=== PATIENT | male | born 1935 | race Caucasian/White ===

== ENCOUNTER 2017-05-03 22:15 | Emergency (ER) | payer OTHER | END 2017-05-04 03:20 | disposition home or self-care (01) | LOC: CED 22:15 | DX: M79.661 Pain in right lower leg (principal); E11.9 Type 2 diabetes mellitus without complications; I10 Essential (primary) hypertension | CPT/HCPCS: 99283 ==

== ENCOUNTER → 2017-05-04 | Outpatient (CLI) | payer OTHER ==
--- NOTE | ~2017-05-04 | US85 ---
[facility] A Service of [facility] & [facility] RADIOLOGY TEXT RESULTS PATIENT: DRAKE BOYD LOCATION: CNIV : 36 UNIT #: [id number] AGE: [address]: Eliot Contreras MD SEX: M ORDER DR: [id number] [facility] [address] [place], [place] [address] [id number] O MR#: [id number] Acc #: [id number] NAME: DRAKE BOYD : 1935 SEX: M STUDY DATE/TIME: 05/04/2017 8:30 UNIT: CNIV ROOM: STUDY DESCRIPTION: [facility] Attending Physician: Eliot Contreras M.D. Referring Physician: Eliot Contreras M.D. Ordering Physician: Eliot Contreras M.D. Primary Care Physician: Primary Care Physician No MEDICAL IMAGING REPORT This report is preliminary unless electronic signature is present EXAM Bilateral lower extremity venous duplex, 05/04/2017 HISTORY Right groin pain for 2 weeks, right thigh pain for 2 weeks. FINDINGS Hartmann-scale images of the right lower extremity were obtained as well as Doppler waveform spectral analysis and color flow Doppler imaging. There is normal blood flow and compressibility in the right common femoral vein, deep femoral vein, superficial femoral vein and popliteal vein. Normal blood flow and compressibility is seen in the right calf veins. Right lower extremity edema is noted. There is a 4.0 cm hypoechoic collection in the distal right thigh at the site of bruising probably representing a hematoma. Clinical correlation is recommended. IMPRESSION 1. No evidence of deep vein thrombosis in the right lower extremity. 2. 4.0 cm hypoechoic collection deep to the subcutaneous tissues in the distal right thigh at the area of bruising. This probably represents hematoma. Clinical correlation is recommended. Dictated by... Jonh Sepulveda M.D. THIS IS AN ELECTRONICALLY VERIFIED REPORT Jonh Sepulveda M.D. at 05/04/2017 5:04 PM TABBY/esther TD: 05/04/2017 10:51 JOB #: [id number] MEDICAL IMAGING REPORT [facility] [email or web address] A Service of [facility] & [facility] RADIOLOGY TEXT RESULTS PATIENT: DRAKE BOYD LOCATION: CNIV : 36 UNIT #: [id number] AGE: [address]: Eliot Contreras MD SEX: M ORDER DR: Page 1 of 1 COPY
== END | disposition home or self-care (01) ==
LOC: CNIV 07:14
DX: M79.604 Pain in right leg (principal); R93.7 Abnormal findings on diagnostic imaging of other parts of musculoskeletal system
CPT/HCPCS: 93971